=== PATIENT | female | born 1970 | race Asian ===

== ENCOUNTER 2018-06-03 11:03 | Outpatient (CLI) | payer BC ==
--- NOTE | 2018-06-03 14:20 | RAD ---
LUMBAR SPINE TWO VIEWS: HISTORY: Low back pain. FINDINGS: There are five lumbar-type vertebrae. Pedicles are intact. Vertebral body heights are maintained. Very mild leftward convex curvature. There is 7 mm of anterior translation of L5 upon the sacrum, with malalignment of the pars interartic ularis, suspected on the lateral view. IMPRESSION: Grade 1 spondylolisthesis at the lumbosacral junction. Suspected spondylolysis. While the spondylol ysis could be evaluated with oblique imaging or CT, if the patient has radicular symptoms, MRI would be appropriate to, at the same time, evaluate the neural structures. POS: MARY LOU
== END 2018-06-03 11:04 | disposition home or self-care (01) ==
LOC: SCSRAD 11:03
PROVIDERS: ATTEND Family Medicine
DX: M54.5 Low back pain (principal); M43.17 Spondylolisthesis, lumbosacral region
CPT/HCPCS: 72100

== ENCOUNTER 2019-05-21 13:10 | Outpatient (CLI) | payer BC ==
--- NOTE | 2019-05-21 13:46 | ULT ---
Thyroid ultrasound: 05/21/2019 COMPARISON: None HISTORY: Abnormal thyroid function tests TECHNIQUE: Multiplanar grayscale sonographic imaging of the thyroid gland obtained. FINDINGS: Thyroid isthmus measures 4 mm in AP dimension. Right lobe measures 4.2 x 1.4 x 1.5 cm and l eft lobe measures 4.1 x 1.1 x 1.3 cm. No thyroid nodule noted. IMPRESSION: Unremarkable thyroid ultrasound.
== END 2019-05-21 13:11 | disposition home or self-care (01) ==
LOC: BICULT 13:10
PROVIDERS: ATTEND Family Medicine
DX: R94.6 Abnormal results of thyroid function studies (principal)
CPT/HCPCS: 76536

== ENCOUNTER 2021-10-31 08:22 | Outpatient (CLI) | payer BC | END 2021-10-31 08:23 | disposition home or self-care (01) | LOC: SCSRAD 08:22 | PROVIDERS: ATTEND Family Medicine | DX: M25.461 Effusion, right knee (principal) ==